=== PATIENT | male | born 1950 | race Caucasian/White ===

== ENCOUNTER → 2017-05-27 | Outpatient (CLI) | payer BC | LOC: FIMAGING 08:47 | PROVIDERS: ATTEND Specialist | DX: N20.0 Calculus of kidney (principal) ==

== ENCOUNTER → 2018-06-09 | Outpatient (CLI) | payer BC | LOC: FIMAGING 09:28 | PROVIDERS: ATTEND Specialist | DX: N20.0 Calculus of kidney (principal) ==

== ENCOUNTER → 2018-06-17 | Outpatient (CLI) | payer BC | LOC: FIMAGING 07:30 | PROVIDERS: ATTEND Specialist | DX: N20.0 Calculus of kidney (principal); R91.1 Solitary pulmonary nodule ==